=== PATIENT | male | born 1975 | race Two or more races ===

== ENCOUNTER 2024-07-22 23:09 | Emergency (ER) | payer MEDICAID, SELFPAY ==
[2024-07-22 23:11] VITALS: BMI 48.4
[2024-07-22 23:38] VITALS: BP 130/86; PULSE 92; RESP 28; TEMP 39.3; O2SAT 90
--- NOTE | 2024-07-22 23:45 | XR_ITS ---
Examination: AP chest single view TECHNIQUE: AP portable upright chest single view Examination type: July 23, 2024 12:00 AM INDICATIONS: Fever chills coughing today. FINDINGS: Minor prominence cardiac contour Mild vascular congestion. No lobar pneumonia. Mild osteopenia IMPRESSION: Mild vascular congestion. No lobar pneumonia
--- NOTE | 2024-07-22 23:46 | EDRME_ITS ---
Rapid Medical Screening Exam [facility] Arrival date/time: 07/22/24 23:09 48M with no known significant PMH presents to ED with several days of cough, SOB, fevers/chills, and non-bloody diarrhea. Chief Complaint: Abdominal Pain Vital signs: Vital Signs Temperature 102.8 F H 07/22/24 23:38 Pulse Rate 92 07/22/24 23:38 Respiratory Rate 28 H 07/22/24 23:38 Blood Pressure 130/86 H 07/22/24 23:38 Pulse Oximetry (%) 90 L 07/22/24 23:38 Oxygen Delivery Method Room Air 07/22/24 23:38
[2024-07-23] VITALS (8 sets, daily range): BP systolic 105–137; BP diastolic 72–98; PULSE 72–86; RESP 14–87; TEMP 36.8–38.2; O2SAT 87–96
[2024-07-23 00:08] LABS: Lactate (Lactic Acid) 1.9 mMol/L (0.4-2.0)
[2024-07-23 00:16] LABS: Basophils % (Auto) 0 % (0-2.5); Eosinophils % (Auto) 0 % (0-10); Hematocrit 51.2 % (41.0-53.0); Hemoglobin 16.3 g/dL (13.5-16.0); Immature Granulocytes % (Auto) 1 % (0-0); Immature Granulocytes Auto 0.04 Thou/mm3 (0.00-0.00); Lymphocytes # (Auto) 1.2 Thou/mm3 (1.0-4.8); Lymphocytes % (Auto) 15 % (10-50); Mean Corpuscular HGB Conc 31.8 g/dl (31.0-37.0); Mean Corpuscular Hemoglobin 27.2 pg (25.0-35.0); Mean Corpuscular Volume 85 fL (80-100); Monocytes # (Auto) 0.9 Thou/mm3 (0.0-0.8); Monocytes % (Auto) 11 % (0-12); Neutrophils % (Auto) 74 % (37-80); Nucleated Red Blood Cell % 0 /100 WBC (0); Platelet Count 221 Thou/mm3 (140-440); RDW Standard Deviation 46.9 fL (35.1-43.9); White Blood Count 8.1 Thou/mm3 (3.8-10.6)
[2024-07-23] MEDS: ACETAMINOPHEN 500 MG TABLET 1000 MG PO (00:23)
[2024-07-23] MEDS: IBUPROFEN TAB 400 MG TABLET 800 MG PO (00:23)
[2024-07-23 00:32] LABS: Alanine Aminotransferase 73 U/L (10-49); Albumin, Serum 4.2 gm/dL (3.5-5.0); Albumin/Globulin Ratio 1.4 (1.2-2.2); Alkaline Phosphatase 76 U/L (46-116); Anion Gap 5 (7-16); Aspartate Amino Transferase 56 U/L (0-34); BUN/Creatinine Ratio 14 Ratio (12-20); Bilirubin,Total 0.4 mg/dL (0.3-1.2); Blood Urea Nitrogen 11 mg/dL (9-23); Calcium 8.9 mg/dL (8.3-10.6); Calcium (Corrected) 8.9 mg/dL (8.5-10.1); Carbon Dioxide 32.5 mMol/L (20.0-31.0); Chloride 99 mMol/L (98-107); Creatinine (Component) 0.8 mg/dL (0.6-1.3); Estimated Creatinine Clearance 148.1 mL/min (>60); Globulin 3.1 gm/dL (2.3-3.5); Glucose 151 mg/dL (74-106); Osmolality,Calculated 274 (275-295); Potassium 4.3 mMol/L (3.4-5.1); Sodium 136 mMol/L (136-145); Total Protein 7.3 gm/dL (5.7-8.2); Troponin I 0.032 ng/mL (0.0-0.045); eGFR > 60 See Note
[2024-07-23 00:40] LABS: Procalcitonin 0.18 ng/ml (0.0-0.49)
[2024-07-23 00:43] LABS: B-Type Natriuretic Peptide 95 pg/mL (0-100)
[2024-07-23 00:55] LABS: Collection Type, Urine Clean Catch
[2024-07-23 01:25] LABS: Bacteria,Urine Rare; Bilirubin,Urine Negative (Negative); Blood,Urine Trace (Negative); Clarity,Urine Clear (Clear/Hazy); Color,Urine Yellow (Lt Yel-Yel); Glucose, Urine Negative (Negative); Ketones,Urine Negative (Negative); Leukocyte Esterase,Urine Negative (Negative); Nitrite,Urine Negative (Negative); Protein,Urine 2+ (Neg - Trace); RBC,Urine 1 /hpf (0-3); Specific Gravity,Urine 1.026 (1.001-1.035); Squamous Epithelial Cell,Urine 2 /hpf (0-5); Urobilinogen,Urine Negative mg/dL (0.0-1.0); WBC,Urine 1 /hpf (0-5)
[2024-07-23 01:27] LABS: Amphetamine/Methamp Scrn,U Negative (Negative); Barbiturate Screen,Urine Negative (Negative); Benzodiazepines Screen,Urine Negative (Negative); Benzoylecgonine Screen, Ur Negative (Negative); Fentanyl Screen,Urine Negative (Negative); Opiate Screen,Urine Negative (Negative); THC Screen,Urine Negative (Negative)
--- NOTE | 2024-07-23 02:03 | EDNOTE_ITS ---
ED Abdominal Pain RME/HPI General Chief Complaint: Abdominal Pain Stated complaint: ABD PAIN, FEVER, CHILLS, DIARRHEA Time seen by provider: 07/23/24 00:29 Arrival date/time: 07/22/24 23:09 Limitations: no limitations RME / HPI RME / HPI narrative: 07/22/24 23:09 48M with no known significant PMH presents to ED with several days of cough, SOB, fevers/chills, and non-bloody diarrhea. --------- Dr[facility] Main ED Evaluation: 48yo male with no significant past medical history presents to the ED for complaints of flu-like symptoms. Patient endorses having watery diarrhea, intermittent subjective fever, chills, cough, and generalized weakness for the last 2-3 days. He reports associated mild chest pain and nausea. He states he was supposed to start a new job yesterday, but felt unwell and his symptoms persisted, so he didn't go and decided to come in for evaluation. He denies any vomiting, sweating, abdominal pain or any other associated symptoms. No sick contacts. No tobacco use. No known allergies. Related Data Previous Rx's ?Medication ?Instructions ?Recorded acetaminophen 325 mg tablet 325 mg PO TID PRN fever #3 0 tabs 07/23/24 (Tylenol) albuterol sulfate 90 mcg/actuation 2 puff inhalation Q 6H PRN cough 5 07/23/24 aerosol inhaler days #8.5 grams ibuprofen 200 mg tablet (Motrin IB) 600 mg (3 x 200 mg ) PO Q6H PRN 07/23/24 fever or pain #30 tabs Allergies Allergy/AdvReac Type Severity Reaction Status Date / Time No Known Allergies Allergy Verified 07/22/24 23:10 Review of Systems Review of Systems Systems Reviewed: All systems reviewed, normal except as documented Past Medical History Past Medical History CARDIAC: Negative Congestive Heart Failure RESPIRATORY: Negative Chronic Obstructive Pulmonary Disease (COPD) GENITOURINARY: Negative Renal Disease ENDOCRINE: Negative Diabetes Mellitus Type 1 or Diabetes Mellitus Type 2 Social History SMOKING STATUS: Never smoker ED Exam General Limitations: Present no limitations General appearance: Present alert and in no apparent distress Head Head exam: Present atraumatic Eye Eye exam: Present normal appearance, PERRL and EOMI ENT ENT exam: Present normal exam, normal oropharynx and mucous membranes moist Neck Neck exam: Present normal inspection, full ROM and trachea midline Chest Chest inspection: Present normal inspection and symmetric chest wall rise Respiratory Respiratory exam: Present other (diffuse rhonchi bilaterally) Cardiovascular Cardiovascular exam: Present regular rate, normal rhythm and normal heart sounds Abdominal Exam Abdominal exam: Present soft and other (large); Absent rebound Extremities Exam Extremities exam: Present normal inspection and full ROM Back Exam Back exam: Present normal inspection and full ROM Neurological Exam Neurological exam: Present alert, oriented X3 and CN II-XII intact Psychiatric Psychiatric exam: Present normal affect and normal mood Skin Skin exam: Present warm, dry, intact and normal color Course Course Course Narrative: CXR is ordered for determining the etiology of fever. 0540: Patient is saturating at 96% RA. Patient is stable to be discharged home. Quality Measures none Orders Category Date Time Status Bedside COVID-19 Antigen Test NOW Care 07/22/24 23:45 Active Bedside Influenza A&B Antigen Test NOW Care 07/22/24 23:45 Active EKG (ED ONLY) *Do not use* NOW Care 07/22/24 23:45 Completed EKG (ED Only) Stat Exams 07/22/24 23:45 Ordered XR chest 1V portable Stat Exams 07/22/24 23:45 Taken B-Type Natriuretic Peptide Stat Lab 07/22/24 23:58 Completed CBC Stat Lab 07/22/24 23:58 Completed Comprehensive Metabolic Panel Stat Lab 07/22/24 23:58 Completed Drug Screen,Urine Stat Lab 07/23/24 00:14 Completed Lactate (Lactic Acid) Stat Lab 07/22/24 23:58 Completed Procalcitonin Stat Lab 07/22/24 23:58 Completed Troponin I Stat Lab 07/22/24 23:58 Completed Urinalysis Stat Lab 07/23/24 00:15 Completed Acetaminophen Tab [Tylenol ES Tab] Med 07/22/24 23:47 Discontinued 1,000 mg PO X1 ONE Albuterol/Ipratr Rt Deb [Duoneb Rt Deb] Med 07/23/24 04:43 Discontinued 3 ml INH X1 ONE Ibuprofen Tab [Motrin Tab] Med 07/22/24 23:47 Discontinued 800 mg PO X1 ONE Sodium Chloride 0.9% 1000 ml [Ns] 1,000 ml Med 07/23/24 03:46 Discontinued IV 999 mls/hr Oxygen Delivery NOW RT 07/22/24 23:46 Active Vital Signs Vital signs: Vital Signs Temperature 102.8 F H 07/22/24 23:38 Pulse Rate 92 07/22/24 23:38 Respiratory Rate 28 H 07/22/24 23:38 Blood Pressure 130/86 H 07/22/24 23:38 Pulse Oximetry (%) 90 L 07/22/24 23:38 Oxygen Delivery Method Room Air 07/22/24 23:38 Abdominal Pain MDM MDM Narrative MDM Narrative:: Patient likely source of fever is from influenza. Chest x-ray does not show superimposed bacterial infection. Patient also with cough. Patient not complaining of shortness of breath likely low O2 sat from pneumonia influenza, DuoNeb was given. Will reassess the patient after DuoNeb to see if can be discharged home. The patient is now day 4 of his symptoms and Tamiflu will not help at this time. Patient data External records reviewed:: [facility] previous records (Per chart review, patient has no previous ED visits or admissions to this facility.) Clinical information provided by:: patient Social determinants that could affect healthcare access:: none Patient has the following chronic illnesses:: none How is presenting disease/condition affected by chronic disease/condition?: no chronic disease Evaluation data The following diagnostics were reviewed and interpreted by me:: lab results and radiology exam(s) Lab and/or radiology exams considered but not ordered:: none Interpretation Summary: Bedside Influenza A is positive, CBC is normal, AST and ALT are slightly elevated, troponin is normal, BNP is normal, Lactic Acid is normal, Procalcitonin is normal, UA is unremarkable, UDS is negative, according to my interpretation. CXR is negative for any infiltrate, CHF, pleural effusion, cardiomegaly or pneumothorax, according to my interpretation. Medications / Prescriptions Medications or Prescriptions considered but not ordered:: none Medication administrations:: Medication Administration History Discontinued Medications Acetaminophen (Acetaminophen 500 Mg Tablet) 1,000 mg PO X1 ONE Stop: 07/22/24 23:48 Last Admin: 07/23/24 00:23 Dose: 1,000 mg Documented By: GERHARD Albuterol/Ipratropium (Albuterol/Ipratropium (Duoneb) Rt Deb 3 Ml Nebu) 3 ml INH X1 ONE Stop: 07/23/24 04:44 Last Admin: 07/23/24 05:20 Dose: 3 ml Documented By: SUSHANT Sodium Chloride (Ns) 1,000 mls @ 999 mls/hr IV .Q1H1M ONE Stop: 07/23/24 04:46 Last Infusion: 07/23/24 05:05 Dose: Infused Documented By: Admin: 07/23/24 04:04 Dose: 999 mls/hr Documented By: GERHARD Ibuprofen (Ibuprofen Tab 400 Mg Tablet) 800 mg PO X1 ONE Stop: 07/22/24 23:48 Last Admin: 07/23/24 00:23 Dose: 800 mg Documented By: GERHARD see above Consultations Consultation(s) initiated? (list below): No Diagnosis Differential diagnosis abdominal pain: other (viral syndrome, sepsis, pneumonia, Influenza, COVID, dehydration, electrolyte abnormality) Most likely diagnosis given after review of the tests above:: see below Admission Indicated Admission indicated?: not indicated Admission Request Was there a request for admission?: No Disposition Plan Disposition Plan: Discharge Discharge Attestation Discharge Attestation: The patient and all family members were given an opportunity to ask questions and understood the discharge instructions. Discharge instructions specifically effects, indications for sooner follow up or return to the emergency department, and the expected course of current diagnosis. Patient condition: Stable Discharge Plan Plan Patient Disposition: HOME (Self Care) Patient condition on transfer: Stable Prescriptions/Referrals Prescriptions/Med Rec: New acetaminophen [Tylenol] 325 mg tablet 325 mg PO TID PRN (Reason: fever) Qty: 30 0RF ibuprofen [Motrin IB] 200 mg tablet 600 mg PO Q6H PRN (Reason: fever or pain) Qty: 30 0RF Rx Instructions: Take with food albuterol sulfate 90 mcg/actuation HFA aerosol inhaler 2 puff inhalation Q6H PRN (Reason: cough) 5 Days Qty: 8.5 0RF Rx Instructions: administer with spacer Referrals: [facility] [Other] - 07/27/24 No Primary/Family,Physician [Primary Care Provider] - In 1 week Problem List Clinical Impression: Influenza Patient/Caregiver Discharge Instructions Diet Instructions: Stay hydrated with Pedialyte and Gatorade. Your urine should be almost clear. 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 I have given you a note for work. You have recurrent return sooner if you are feeling better. Return to the emergency department for worsening symptoms, or any other concerns. This draw the trauma Print Language: Yoruba Stand Alone Forms: [employer] Award Info., Work/School Release, Patient Portal Info Letter
[2024-07-23] MEDS: SODIUM CHLORIDE 0.9% 1000 ML 1,000 ML 999 ML IV (04:04)
[2024-07-23] MEDS: ALBUTEROL/IPRATROPIUM (Duoneb) RT SOL 3 ML NEBU INH (05:20)
== END 2024-07-23 05:40 | disposition home or self-care (01) ==
PROVIDERS: Physician Assistant; Emergency Provider Emergency Medicine
DX: J10.1 Influenza due to other identified influenza virus with other respiratory manifestations (principal)
CPT/HCPCS: 36415; 71045; 80053; 80307; 81001; 83605; 83880; 84145; 84484; 85025; 93005; 94640; 96360; 99284; A9270; J7030